=== PATIENT | female | born 1955 | race Caucasian/White ===

== ENCOUNTER → 2017-06-19 | Outpatient (CLI) | payer OTHER ==
--- NOTE | 2017-06-19 16:26 | WOMENS IMAGING REPORT ---
EXAM DESCRIPTION: 3D SCREENING MAMMO BILAT COMPLETED DATE/TIME: 06/19/2017 2:59 pm REASON FOR STUDY: SCREENING MAMMO Z12.31 ENCNTR SCREEN MAMMOGRAM FOR MALIGNANT NEOPLASM OF ДМИТРИЙ COMPARISON: 05/22/2016 and 05/16/2015. TECHNIQUE: Standard craniocaudal and mediolateral oblique views of each breast recorded using digita l acquisition and breast tomosynthesis. LIMITATIONS: None. FINDINGS: Findings present which are benign by mammographic criteria. No suspicious masses, calcifi cations or architectural distortion. Pertinent benign findings: Stable calcifications. Read with the assistance of CAD. .[facility] - R2 Cenova Version 1.3 .[facility] - R2 Cenova Version 1.3 .[facility] - R2 Cenova Version 2.4 .[facility] - R2 Cenova Version 2.4 .[facility] - R2 Scrape Gatherer Version 9.2 Benign mammographic findings may include one or more of the following: Smooth masses, popcorn/rim/co arse calcifications, asymmetries, post-procedure changes, and lesions with long-standing stability. IMPRESSION: BENIGN MAMMOGRAPHIC FINDINGS. BIRADS 2 BREAST DENSITY: c. The breasts are heterogeneously dense, which may obscure small masses. BIRAD: 2 BENIGN FINDING(S) RECOMMENDATION: RECOMMENDATION: ROUTINE SCREENING COMMENT: The patient has been notified of the results by letter per SA requirements. Additional no tification policies are in place for contacting patient with suspicious or incomplete findings. Quality ID #[id number]: The [employer] recommends an annual screening mammogram for women aged 40 years or over. This facility utilizes a reminder system to ensure that all patients receive reminder letters, and/or direct phone calls for appointments. This includes reminders for routine scr eening mammograms, diagnostic mammograms, or other Breast Imaging Interventions when appropriate. Th is patient will be placed in the appropriate reminder system. The [employer] (ACR) has developed recommendations for screening MRI of the breast s in certain patient populations, to be used in conjunction with mammography. Breast MRI surveillanc e may be appropriate for women with more than 20% lifetime risk of developing breast cancer as deter mined by genetic testing, significant family history of the disease, or history of mantle radiation f or Hodgkins Disease. ACR Practice Guidelines 2008. DBT Technology DBT is a type of tomographic mammography. With conventional mammography, overlapping breast tissue ma y make lesions difficult to detect, even with good compression. DBT uses an x-ray tube that rotates a round the breast, taking images at different angles. These images are then combined to create thin sl ices of the breast that the radiologist can view as a 3D reconstruction. The [employer] unit can perform full-field digital mammograms (2D imaging); or DBT (3D imaging); or both, in a combination mode that quickly performs both the mammogram and the tomosynthesis scan while the breast is still compressed. PQRS 6045F: Fluoroscopic imaging is not utilized for breast tomosynthesis. TECHNICAL DOCUMENTATION: FINDING NUMBER: (1) ASSESSMENT: (1) JOB ID: [id number] [employer]- All Rights Reserved
== END ==
LOC: WI 14:23
PROVIDERS: ATTEND Nurse Practitioner
DX: Z12.31 Encounter for screening mammogram for malignant neoplasm of breast (principal)
CPT/HCPCS: 77063; G0202; 77067

== ENCOUNTER 2018-05-18 08:45 | Inpatient (IN) | payer OTHER ==
[2018-05-18] MEDS ORDERED: NORMAL SALINE 1000 ML 1,000 ML IV ONE (09:10)
[2018-05-18] MEDS ORDERED: ONDANSETRON HCL INJ/PF 4 MG/2 ML SDV IV ONE (09:11)
[2018-05-18] MEDS ORDERED: DICYCLOMINE HCL 20 MG TABLET PO ONE (09:15)
--- NOTE | 2018-05-18 09:24 | ER Document Report ---
ED General - General Chief Complaint: Abdominal Pain Stated Complaint: ABDOMINAL PAIN Time Seen by Provider: 05/18/18 09:08 TRAVEL OUTSIDE OF THE [place] IN LAST 30 DAYS: No - HPI Notes: Patient is a 62-year-old female that presents to the emergency department for chief complaint of abdominal pain nausea and vomiting. She reports 3 days of multiple episodes of nausea and vomiting daily. She states she is unable to keep any food down. Eating does make the nausea worse. She reports diffuse crampy abdominal pain that is worse in the epigastric region. The pain is intermittent. It is slightly worse with eating and vomiting. She denies any relieving factors. She does report sweats and chills but denies taking her temperature having a fever. She denies any diarrhea, dysuria, cough, shortness of breath and chest pain. Past Medical History: Diabetes, hypertension, hyperlipidemia, asthma Past Surgical History: hysterectomy, appendectomy Social History: Daily tobacco. Denies drugs and alcohol Family History: Reviewed and noncontributory for presenting illness Allergies: Reviewed, see documented allergy list. REVIEW OF SYSTEMS: CONSTITUTIONAL : No fever chills diaphoresis No recent illness EENT: No vision changes No congestion No sore throat CARDIOVASCULAR: No chest pain No palpitations RESPIRATORY: No shortness of breath No cough No difficulty breathing GASTROINTESTINAL: abdominal pain nausea vomiting No diarrhea GENITOURINARY: No dysuria No hematuria No difficulty urinating MUSCULOSKELETAL: No back pain No leg pain No arm pain SKIN: No rashes No lesions LYMPHATIC: No swollen, enlarged glands. NEUROLOGICAL: No lightheadedness No headache No weakness No paresthesias PSYCHIATRIC: No anxiety No depression PHYSICAL EXAMINATION: Vital signs reviewed, nursing noted reviewed. GENERAL: Well-appearing, well-nourished and in no acute distress. HEAD: Atraumatic, normocephalic. EYES: Eyes appear normal, extraocular movements intact, sclera anicteric, conjunctiva are normal. ENT: nares patent, oropharynx clear without exudates. Moist mucous membranes. NECK: Normal range of motion, supple without lymphadenopathy LUNGS: Breath sounds clear to auscultation bilaterally and equal. No wheezes rales or rhonchi. HEART: Regular rate and rhythm without murmurs ABDOMEN: Soft, mild diffuse abdominal tenderness worse in the epigastric region , normoactive bowel sounds. No rebound, guarding, or rigidity. No masses appreciated. EXTREMITIES: Nontender, good range of motion, no pitting or edema. NEUROLOGICAL: No focal neurological deficits. Moves all extremities spontaneously Motor and sensory grossly intact on exam. PSYCH: Normal mood, normal affect. SKIN: Warm, Dry, normal turgor, no rashes or lesions noted on exposed skin - Related Data Allergies/Adverse Reactions: codeine Allergy (Verified 05/18/18 08:50) egg Allergy (Verified 05/18/18 08:50) Past Medical History - Social History Smoking Status: Current Every Day Smoker Family History: Reviewed & Not Pertinent Review of Systems - Review of Systems Notes: Dictated Physical Exam - Vital signs Vitals: Temp Resp BP 97.7 F 18 120/59 L 05/18/18 08:54 05/18/18 08:54 05/18/18 08:54 - Notes Notes: Dictated Course - Re-evaluation Re-evalutation: 05/18/18 09:24 Vitals reviewed. Nursing notes reviewed. Patient given IV hydration, Zofran and Bentyl for symptomatic treatment. 05/18/18 11:05 Patient reevaluated. She is having improvement of her pain and nausea after medication. Patient's lab work shows elevated BUN with normal creatinine. She has no electrolyte derangements. She does have a mild leukocytosis. She is still unable to give a urine sample and I suspect she is still dehydrated. She was given a second liter normal saline IV bolus. CT scan of the abdomen shows a small bowel obstruction. Patient made n.p.o. and NG tube was placed. She will be admitted to the hospital for further management of her small bowel obstruction. Patient in agreement with this plan. Laboratory 05/18/18 05/18/18 09:16 09:16 WBC 14.1 H RBC 5.04 Hgb 15.6 H Hct 46.0 MCV 91 MCH 30.9 MCHC 33.9 RDW 14.1 H Plt Count 216 Seg Neutrophils % 77.3 Lymphocytes % 12.5 L Monocytes % 9.7 Eosinophils % 0.2 Basophils % 0.3 Absolute Neutrophils 10.9 H Absolute Lymphocytes 1.8 Absolute Monocytes 1.4 Absolute Eosinophils 0.0 Absolute Basophils 0.0 Sodium 142.0 Potassium 4.3 Chloride 99 Carbon Dioxide 24 Anion Gap 19 BUN 23 H Creatinine 0.78 Est GFR ( Amer) > 60 Est GFR (Non-Af Amer) > 60 Glucose 145 H Calcium 10.4 H Total Bilirubin 1.1 Direct Bilirubin 0.4 Neonat Total Bilirubin Not Reportable Neonat Direct Bilirubin Not Reportable Neonat Indirect Bili Not Reportable AST 17 ALT 18 Alkaline Phosphatase 51 Total Protein 7.6 Albumin 4.8 Lipase 45.2 05/18/18 12:[address] Soriano who accepted admission - Vital Signs Vital signs: Temp Pulse Resp BP Pulse Ox 97.7 F 18 120/59 L 05/18/18 08:54 05/18/18 08:54 05/18/18 08:54 - Laboratory Result Diagrams: 05/18/18 09:16 05/18/18 09:16 Laboratory results interpreted by me: 05/18/18 05/18/18 09:16 09:16 WBC 14.1 H Hgb 15.6 H RDW 14.1 H Lymphocytes % 12.5 L Absolute Neutrophils 10.9 H BUN 23 H Glucose 145 H Calcium 10.4 H Discharge - Discharge Clinical Impression: Small bowel obstruction Condition: Stable Disposition: ADMITTED INPATIENT Admitting Provider: Surgicalist Unit Admitted: Surgical Floor Referrals: TRAV RIVERA NP [Primary Care Provider] - Follow up as needed
[2018-05-18 09:25] LABS: ABSOLUTE LYMPHOCYTES (AUTO) 1.8 10^3/uL (0.5-4.7); ABSOLUTE MONOCYTES (AUTO) 1.4 10^3/uL (0.1-1.4); ABSOLUTE NEUT (AUTO) 10.9 10^3/uL (1.7-8.2); BASOPHILS % (AUTO) 0.3 % (0-2); EOSINOPHILS % (AUTO) 0.2 % (0-6); HEMOGLOBIN 15.6 g/dL (12.0-15.5); LYMPHOCYTES % (AUTO) 12.5 % (13-45); MEAN CORPUSCULAR HEMOGLOBIN 30.9 pg (27.0-33.4); MEAN CORPUSCULAR HGB CONC 33.9 g/dL (32.0-36.0); MEAN CORPUSCULAR VOLUME 91 fl (80-97); MONOCYTES % (AUTO) 9.7 % (3-13); PLATELET COUNT 216 10^3/uL (150-450); RED BLOOD COUNT 5.04 10^6/uL (3.72-5.28); RED CELL DISTRIBUTION WIDTH 14.1 % (11.5-14.0); SEGMENTED NEUTROPHILS % (AUTO) 77.3 % (42-78); TOTAL CELLS COUNTED % (AUTO) 100 %; WHITE BLOOD COUNT 14.1 10^3/uL (4.0-10.5)
[2018-05-18 09:52] LABS: ALANINE AMINOTRANSFERASE 18 U/L (9-52); ALBUMIN 4.8 g/dL (3.5-5.0); ALKALINE PHOSPHATASE 51 U/L (38-126); ANION GAP 19 (5-19); ASPARTATE AMINO TRANSFERASE 17 U/L (14-36); BILIRUBIN,DIRECT 0.4 mg/dL (0.0-0.4); BILIRUBIN,TOTAL 1.1 mg/dL (0.2-1.3); BLOOD UREA NITROGEN 23 mg/dL (7-20); CALCIUM 10.4 mg/dL (8.4-10.2); CARBON DIOXIDE 24 mmol/L (22-30); CHLORIDE 99 mmol/L (98-107); GLUCOSE 145 mg/dL (75-110); LIPASE 45.2 U/L (23-300); POTASSIUM 4.3 mmol/L (3.6-5.0); TOTAL PROTEIN 7.6 g/dL (6.3-8.2)
[2018-05-18] MEDS: NORMAL SALINE 1000 ML 1,000 ML IV PRN ×2 (10:40→14:26)
--- NOTE | 2018-05-18 11:11 | RADIOLOGY REPORT (SQ) ---
EXAM DESCRIPTION: CT ABD/PELVIS WITH IV ONLY COMPLETED DATE/TIME: 05/18/2018 10:31 am REASON FOR STUDY: epigastric abdominal pain COMPARISON: None. TECHNIQUE: CT scan of the abdomen and pelvis performed using helical scanning technique with dynamic intravenous contrast injection. No oral contrast. Images reviewed with lung, soft tissue, and bone windows. Reconstructed coronal and sagittal MPR images reviewed. Delayed images for evaluation of the urinary system also acquired. All images stored on PACS. All CT scanners at this facility use dose modulation, iterative reconstruction, and/or weight based d osing when appropriate to reduce radiation dose to as low as reasonably achievable (ALARA). [facility]: Dose Right [facility]: CareDose [facility]: Dose Right [facility]: Teradose 4D [facility]: [employer] CONTRAST TYPE AND DOSE: contrast/concentration: Isovue 350.00 mg/ml; Total Contrast Delivered: 74.0 ml; Total Saline Delivered: 66.0 ml 74 mL IV of Omnipaque 350- low osmolar. RENAL FUNCTION: BUN 23 creatinine 0.78 RADIATION DOSE: CT Rad equipment meets quality standard of care and radiation dose reduction techniq ues were employed. CTDIvol: 6.5 - 9.0 mGy. DLP: 832 mGy-cm.. LIMITATIONS: None. FINDINGS: LOWER CHEST: No significant findings. No nodules or infiltrates. LIVER: Normal size. No masses. No dilated ducts. SPLEEN: Normal size. No focal lesions. PANCREAS: No masses. No significant calcifications. No adjacent inflammation or peripancreatic fluid collections. Pancreatic duct not dilated. GALLBLADDER: Gallstones. No inflammatory changes to suggest cholecystitis. ADRENAL GLANDS: Indeterminate 2.0 x 3.3 cm right adrenal nodule. Left adrenal gland is normal. RIGHT KIDNEY AND URETER: No solid masses. No significant calcifications. No hydronephrosis or hyd roureter. LEFT KIDNEY AND URETER: No solid masses. No significant calcifications. No hydronephrosis or hydr oureter. AORTA AND VESSELS: No aneurysm. Mild scattered calcified noncalcified plaque of the visualized aorto iliac system. IVC is flattened. No dissection. Renal arteries, SMA, celiac without stenosis. RETROPERITONEUM: No retroperitoneal adenopathy, hemorrhage or masses. BOWEL AND PERITONEAL CAVITY: Multiple fluid-filled loops of mildly dilated loops of proximal small sydni wel. Mid to distal small bowel is collapsed. Possible transition point within the right lower quadr ant of the abdomen (series 3, image 64; series 601, image 35). Few scattered diverticula colon. No inflammatory changes to suggest diverticulitis. Colon is not dilated. Small amount of free fluid wi thin the abdomen and pelvis. No free air. APPENDIX: Surgically absent. PELVIS: Uterus is surgically absent. Urinary bladder is minimally distended. Small amount of free f luid. ABDOMINAL WALL: No masses. No hernias. BONES: No significant or acute findings. OTHER: No other significant finding. IMPRESSION: 1. Dilated proximal small bowel consistent with a small-bowel obstruction. Possible transition point within the for right lower quadrant the abdomen. Small amount of free fluid within the abdomen/pelv is. 2. Cholelithiasis. 3. Indeterminate right adrenal nodule. Nonemergent adrenal protocol CT or MRI is recommended for fur ther evaluation. 4. Diverticulosis without diverticulitis. COMMENT: This report was called to KARMA FARRAR DO at11:02 on 05/18/2018. TECHNICAL DOCUMENTATION: JOB ID: [id number] Quality ID # [id number]: Final reports with documentation of one or more dose reduction techniques (e.g., Au tomated exposure control, adjustment of the mA and/or kV according to patient size, use of iterative reconstruction technique) 2010 [employer]- All Rights Reserved Reading location - IP/workstation name: [email or web address]
[2018-05-18] MEDS ORDERED: PHARMACY COMMUNICATION ORDER MC NR (11:15)
[2018-05-18] MEDS ORDERED: LIDOCAINE 2% URO-JET 5 ML KIT MM ONE (11:47)
--- NOTE | 2018-05-18 14:24 | RADIOLOGY REPORT (SQ) ---
EXAM DESCRIPTION: KUB/ABDOMEN (SINGLE VIEW) COMPLETED DATE/TIME: 05/18/2018 12:48 pm REASON FOR STUDY: Check Placement of NG Tube COMPARISON: CT abdomen and pelvis 05/18/2018. NUMBER OF VIEWS: One view. TECHNIQUE: Semi upright radiographic image of the abdomen acquired. LIMITATIONS: None. FINDINGS: BOWEL GAS PATTERN: Gaseous distension of small bowel loops, consistent with known obstruct ion. CALCIFICATIONS: No suspicious calcifications. SOFT TISSUES: No gross mass or suggestion of organomegaly. HARDWARE: Enteric tube with the tip at the left upper quadrant, in the expected location of the gastr ic body. BONES: No acute findings. IMPRESSION: 1. Enteric tube with the tip at the left upper quadrant, in the expected location of th e gastric body. 2. Gaseous distension of small bowel loops, consistent with known small bowel obstruction. TECHNICAL DOCUMENTATION: JOB ID: [id number] 2010 [employer]- All Rights Reserved Reading location - IP/workstation name: [email or web address]
[2018-05-18] MEDS: ONDANSETRON HCL INJ/PF 4 MG/2 ML SDV IV PRN ×2 (14:28→22:10)
[2018-05-18] MEDS: DEXTROSE 5%-LACTATED RINGERS 1,000 ML IV PRN (16:07)
[2018-05-18] MEDS ORDERED: DEXTROSE 50%-WATER SYRINGE 12.5 GM/25 ML DOSE IV PRN (16:09)
[2018-05-18] MEDS ORDERED: DEXTROSE 40% GEL 15 GM TUBE PO PRN (16:09)
[2018-05-18] MEDS ORDERED: INSULIN LISPRO 100 UNIT/ML 3 ML VIAL SUBCUT PRN (16:09)
[2018-05-18] MEDS ORDERED: DEXTROSE 50%-WATER SYRINGE 25 GM/50 ML DOSE IV PRN (16:09)
[2018-05-18] MEDS ORDERED: DEXTROSE 40% GEL 15 GM TUBE X 2 PO PRN (16:09)
[2018-05-18] MEDS ORDERED: GLUCAGON,HUMAN RECOMB 1 MG INJ IM PRN (16:09)
[2018-05-18 16:47] LABS: APPEARANCE,URINE CLEAR; BILIRUBIN,URINE NEGATIVE (NEGATIVE); COLOR,URINE YELLOW; GLUCOSE, URINE NEGATIVE (NEGATIVE); KETONES,URINE 20 mg/dL (NEGATIVE); LEUKOCYTE ESTERASE,URINE NEGATIVE (NEGATIVE); NITRITE,URINE NEGATIVE (NEGATIVE); PROTEIN,URINE NEGATIVE (NEGATIVE); URINE SPECIFIC GRAVITY > 1.060
[2018-05-18] MEDS ORDERED: PROMETHAZINE HCL INJ 25 MG/1 ML VIAL IV PRN (17:40)
[2018-05-18] MEDS: MORPHINE SULFATE 10 MG/ML INJ IV PRN ×2 (18:00→22:10)
[2018-05-18] MEDS ORDERED: PHENOL/SODIUM PHENOLATE 100 SPRAY/177 ML BOTTLE PO PRN (19:15)
--- NOTE | 2018-05-18 19:17 | PDOC H&P ---
History of Present Illness Admission Date/PCP: 05/18/18 12:27 TRAV RIVERA NP Patient complains of: Nausea, vomiting History of Present Illness: MINDI SPENCER is a 62 year old female with a 2-day history of increasing abdominal pain, nausea, and vomiting. The patient reports that she cannot keep anything down, even water. She has vomited multiple times. She felt like she was becoming dehydrated, and presented to the emergency department for evaluation. Her pain is crampy and mild. She does report abdominal distention , persistent nausea, and multiple episodes of vomiting. She denies fevers, chills, chest pain, shortness of breath, dizziness, orthostasis, malaise, fatigue, headache. She has never had a small bowel obstruction in the past. She has had multiple abdominal surgeries. Nothing makes it better, eating or drinking make it worse. Past Medical History Pulmonary Medical History: Reports: Asthma Endocrine Medical History: Reports: Diabetes Mellitus Type 2 - "pre-diabetic" Renal/ Medical History: Reports: Other - Endometriosis Past Surgical History Past Surgical History: Reports: Hysterectomy, Other - Surgery for endometriosis Social History Smoking Status: Current Some Day Smoker Cigarettes Packs Per Day: 1 Number of Years Smokin Last Time Smoked: SATURDAY Frequency of Alcohol Use: Rare Hx Recreational Drug Use: No Hx Prescription Drug Abuse: No - Advance Directive Resuscitation Status: Full Code Family History Family History: Reviewed & Not Pertinent Parental Family History Reviewed: Yes Children Family History Reviewed: Yes Sibling(s) Family History Reviewed.: Yes Medication/Allergy Home Medications: Cholecalciferol (Vitamin D3) [Vitamin D] 2,000 unit PO DAILY 05/18/18 Cyanocobalamin (Vitamin B-12) [B-12] 1,000 mcg PO DAILY 05/18/18 Esomeprazole Magnesium [Nexium 24Hr] 20 mg PO DAILY 05/18/18 Losartan Potassium [Cozaar 100 mg Tablet] 100 mg PO DAILY 05/18/18 Metformin HCl [Glucophage] 1,000 mg PO BID 05/18/18 Rosuvastatin Calcium [Crestor 20 mg Tablet] 20 mg PO DAILY 05/18/18 Allergies/Adverse Reactions: codeine Allergy (Verified 05/18/18 08:50) egg Allergy (Verified 05/18/18 08:50) Review of Systems Constitutional: PRESENT: anorexia. ABSENT: chills, fatigue, fever(s), headache( s), night sweats Eyes: ABSENT: visual disturbances Ears: ABSENT: hearing changes Nose, Mouth, and Throat: ABSENT: sore throat Cardiovascular: ABSENT: chest pain Respiratory: ABSENT: cough, dyspnea Gastrointestinal: PRESENT: abdominal pain, bloating, nausea, vomiting Genitourinary: ABSENT: dysuria Musculoskeletal: ABSENT: back pain Integumentary: ABSENT: pruritus, rash Neurological: ABSENT: abnormal movements, abnormal speech, confusion, convulsions, dizziness Psychiatric: ABSENT: anxiety, depression Endocrine: ABSENT: cold intolerance, heat intolerance Hematologic/Lymphatic: ABSENT: easy bleeding, easy bruising Physical Exam Vital Signs: Temp Pulse Resp BP Pulse Ox 97.8 F 81 17 140/85 H 100 05/18/18 15:18 05/18/18 15:18 05/18/18 15:18 05/18/18 15:18 05/18/18 15:18 General appearance: PRESENT: no acute distress Head exam: PRESENT: atraumatic, normocephalic Eye exam: PRESENT: EOMI, PERRLA. ABSENT: scleral icterus Mouth exam: PRESENT: moist, neck supple Neck exam: ABSENT: meningismus, tenderness, thyromegaly, tracheal deviation Respiratory exam: PRESENT: clear to auscultation phylicia, unlabored. ABSENT: chest wall tenderness, tachypnea Cardiovascular exam: PRESENT: RRR Pulses: PRESENT: normal radial pulses Vascular exam: PRESENT: normal capillary refill. ABSENT: pallor GI/Abdominal exam: PRESENT: distended, soft, tenderness - Mild. ABSENT: rebound , rigid Rectal exam: PRESENT: deferred Extremities exam: ABSENT: clubbing Musculoskeletal exam: ABSENT: deformity Neurological exam: PRESENT: alert, awake, oriented to person, oriented to place , oriented to time, oriented to situation, CN II-XII grossly intact. ABSENT: motor sensory deficit Psychiatric exam: ABSENT: agitated, anxious, depressed Focused psych exam: ABSENT: delusional Skin exam: ABSENT: cyanosis, erythema, jaundice Results Laboratory Results: 05/18/18 16:32 Urine Color YELLOW Urine Appearance CLEAR Urine pH 6.0 Ur Specific [place] > 1.060 Urine Protein NEGATIVE Urine Glucose (UA) NEGATIVE Urine Ketones 20 H Urine Blood NEGATIVE Urine Nitrite NEGATIVE Ur Leukocyte Esterase NEGATIVE Urine WBC (Auto) 3 Urine RBC (Auto) 2 Impressions: Abdomen/Pelvis CT 05/18/18 09:25 IMPRESSION: 1. Dilated proximal small bowel consistent with a small-bowel obstruction. Possible transition point within the for right lower quadrant the abdomen. Small amount of free fluid within the abdomen/pelvis. 2. Cholelithiasis. 3. Indeterminate right adrenal nodule. Nonemergent adrenal protocol CT or MRI is recommended for further evaluation. 4. Diverticulosis without diverticulitis. KUB X-Ray 05/18/18 11:05 IMPRESSION: 1. Enteric tube with the tip at the left upper quadrant, in the expected location of the gastric body. 2. Gaseous distension of small bowel loops, consistent with known small bowel obstruction. Status: Image reviewed by me Assessment & Plan - Diagnosis (1) Small bowel obstruction Is this a current diagnosis for this admission?: Yes - Plan Summary Plan Summary: This is a 62-year-old female with a small bowel obstruction, seen on CT scan. The patient has never had symptoms like this before. The patient has had several pelvic surgeries in the past. I believe her symptoms to be related to adhesive disease. Currently, the patient has an NG tube for decompression. The patient does not have signs of an acute abdomen. I recommended NG tube decompression and watchful waiting. If the patient does not have resolution of symptoms in 48 hours, she may require surgical intervention. The patient expressed good understanding. She is in agreement with the treatment plan.
[2018-05-19] MEDS: DEXTROSE 5%-LACTATED RINGERS 1,000 ML IV PRN ×5 (01:53→23:09)
[2018-05-19 04:53] LABS: ABSOLUTE EOSINOPHILS # (AUTO) 0.1 10^3/uL (0.0-0.6); ABSOLUTE LYMPHOCYTES (AUTO) 2.1 10^3/uL (0.5-4.7); ABSOLUTE MONOCYTES (AUTO) 1.4 10^3/uL (0.1-1.4); ABSOLUTE NEUT (AUTO) 8.9 10^3/uL (1.7-8.2); BASOPHILS % (AUTO) 0.3 % (0-2); HEMATOCRIT 42.5 % (36.0-47.0); HEMOGLOBIN 14.3 g/dL (12.0-15.5); MEAN CORPUSCULAR HEMOGLOBIN 30.8 pg (27.0-33.4); MEAN CORPUSCULAR HGB CONC 33.7 g/dL (32.0-36.0); MEAN CORPUSCULAR VOLUME 91 fl (80-97); PLATELET COUNT 177 10^3/uL (150-450); RED BLOOD COUNT 4.65 10^6/uL (3.72-5.28); SEGMENTED NEUTROPHILS % (AUTO) 70.7 % (42-78); TOTAL CELLS COUNTED % (AUTO) 100 %; WHITE BLOOD COUNT 12.5 10^3/uL (4.0-10.5)
[2018-05-19 05:14] LABS: ALANINE AMINOTRANSFERASE 13 U/L (9-52); ALBUMIN 3.6 g/dL (3.5-5.0); ALKALINE PHOSPHATASE 35 U/L (38-126); ANION GAP 9 (5-19); ASPARTATE AMINO TRANSFERASE 14 U/L (14-36); BILIRUBIN,DIRECT 0.2 mg/dL (0.0-0.4); BILIRUBIN,TOTAL 0.9 mg/dL (0.2-1.3); BLOOD UREA NITROGEN 16 mg/dL (7-20); CALCIUM 9.3 mg/dL (8.4-10.2); CARBON DIOXIDE 32 mmol/L (22-30); CHLORIDE 103 mmol/L (98-107); GLUCOSE 142 mg/dL (75-110); SODIUM 144.2 mmol/L (137-145)
[2018-05-19] MEDS: MORPHINE SULFATE 10 MG/ML INJ IV PRN ×2 (06:20→15:36)
[2018-05-19] MEDS: ONDANSETRON HCL INJ/PF 4 MG/2 ML SDV IV PRN ×2 (06:21→15:35)
[2018-05-19] MEDS: PANTOPRAZOLE SODIUM 40 MG VIAL IV SCH (11:13)
[2018-05-19] MEDS: ENOXAPARIN SODIUM INJ 40 MG/0.4 ML DISP.SYRIN SUBCUT SCH (11:13)
--- NOTE | 2018-05-19 11:44 | RADIOLOGY REPORT (SQ) ---
EXAM DESCRIPTION: KUB/ABDOMEN (SINGLE VIEW) COMPLETED DATE/TIME: 05/19/2018 8:00 am REASON FOR STUDY: SBO COMPARISON: 05/18/2018. NUMBER OF VIEWS: One view. TECHNIQUE: Supine radiographic image of the abdomen acquired. LIMITATIONS: None. FINDINGS: BOWEL GAS PATTERN: Small bowel dilation unchanged. CALCIFICATIONS: No suspicious calcifications. SOFT TISSUES: No gross mass or suggestion of organomegaly. HARDWARE: Nasogastric tube with the tip in the stomach. BONES: No acute fracture. No worrisome bone lesions. OTHER: No other significant finding. IMPRESSION: NO CHANGE. CONTINUED SMALL BOWEL DILATION. TECHNICAL DOCUMENTATION: JOB ID: [id number] [employer]- All Rights Reserved Reading location - IP/workstation name: [email or web address]
--- NOTE | 2018-05-19 17:36 | PDOC PROGRESS REPORT ---
Subjective Progress Note for:: 05/19/18 Subjective:: Patient states she felt some rumbling in her intestines great bowel movement. She still draining from her small caliber nasogastric tube. She denies flatus or stool. Reason For Visit: SMALL BOWEL OBSTRUCTION Physical Exam Vital Signs: Temp Pulse Resp BP Pulse Ox 98.3 F 77 16 135/72 H 97 05/19/18 15:30 05/19/18 15:30 05/19/18 15:30 05/19/18 15:30 05/19/18 15:30 Intake & Output 05/18/18 05/19/18 05/20/18 06:59 06:59 06:59 Intake Total 1977 950 Output Total 750 200 Balance 1227 750 Weight 73.7 kg General appearance: PRESENT: no acute distress GI/Abdominal exam: PRESENT: other - Abdomen soft essentially no tenderness; however patient just received narcotics Results Laboratory Results: 05/19/18 04:05 05/19/18 04:05 05/19/18 05/19/18 04:05 04:05 WBC 12.5 H RBC 4.65 Hgb 14.3 Hct 42.5 MCV 91 MCH 30.8 MCHC 33.7 RDW 14.0 Plt Count 177 Seg Neutrophils % 70.7 Lymphocytes % 17.0 Monocytes % 11.0 Eosinophils % 1.0 Basophils % 0.3 Absolute Neutrophils 8.9 H Absolute Lymphocytes 2.1 Absolute Monocytes 1.4 Absolute Eosinophils 0.1 Absolute Basophils 0.0 Sodium 144.2 Potassium 4.0 Chloride 103 Carbon Dioxide 32 H Anion Gap 9 BUN 16 Creatinine 0.70 Est GFR ( Amer) > 60 Est GFR (Non-Af Amer) > 60 Glucose 142 H Calcium 9.3 Total Bilirubin 0.9 AST 14 ALT 13 Alkaline Phosphatase 35 L Total Protein 6.0 L Albumin 3.6 Impressions: Abdomen/Pelvis CT 05/18/18 09:25 IMPRESSION: 1. Dilated proximal small bowel consistent with a small-bowel obstruction. Possible transition point within the for right lower quadrant the abdomen. Small amount of free fluid within the abdomen/pelvis. 2. Cholelithiasis. 3. Indeterminate right adrenal nodule. Nonemergent adrenal protocol CT or MRI is recommended for further evaluation. 4. Diverticulosis without diverticulitis. KUB X-Ray 05/19/18 06:00 IMPRESSION: NO CHANGE. CONTINUED SMALL BOWEL DILATION. Assessment & Plan - Diagnosis (1) Small bowel obstruction Is this a current diagnosis for this admission?: Yes Plan: Depression: Likely partial; however patient has not opened up yet. Abdominal films today show persisting dilated loops of small bowel; no active flatus Recommendations: 1. We will discontinue narcotics to reduce negative effect on bowel recovery, and risk of masking any disease progression 2. We will consult hospitalist for management of medical issues including anti- asthma medication. 3. She may have sips of ice chips. 4. If no better tomorrow, will obtain a upper GI with small bowel follow- through.
--- NOTE | 2018-05-19 18:42 | PDOC CONSULTATION ---
History of Present Illness Admission Date/PCP: 05/18/18 12:27 TRAV RIVERA NP History of Present Illness: MINDI SPENCER is a 62 year old female with a past medical history of well- controlled hypertension, prediabetes, hyperlipidemia, and asthma who was admitted for partial SBO under surgery service. Hospitalist service was consulted for comanagement of patient's home medications and medical comorbidities. Patient's medical issues have been well controlled. She says she is not a diabetic and and her highest A1c in the past is 6.4. She says that even with her prediabetes, her PCP has decided to start her on metformin. She says her last hemoglobin A1c was 5.4 months ago. She says her hypertension is also well controlled at home. She says she has asthma with her last exacerbation last month. She uses Breo for this. She also takes Lunesta as needed for insomnia at night. Past Medical History Pulmonary Medical History: Reports: Asthma Endocrine Medical History: Reports: Diabetes Mellitus Type 2 - "pre-diabetic" Renal/ Medical History: Reports: Other - Endometriosis Past Surgical History Past Surgical History: Reports: Hysterectomy, Other - Surgery for endometriosis Social History Smoking Status: Current Some Day Smoker Cigarettes Packs Per Day: 1 Number of Years Smokin Last Time Smoked: SATURDAY Frequency of Alcohol Use: Rare Hx Recreational Drug Use: No Hx Prescription Drug Abuse: No - Advance Directive Resuscitation Status: Full Code Family History Family History: Reviewed & Not Pertinent Parental Family History Reviewed: Yes - No premature CAD Children Family History Reviewed: No Sibling(s) Family History Reviewed.: No Medication/Allergy Home Medications: Cholecalciferol (Vitamin D3) [Vitamin D] 2,000 unit PO DAILY 05/18/18 Cyanocobalamin (Vitamin B-12) [B-12] 1,000 mcg PO DAILY 05/18/18 Esomeprazole Magnesium [Nexium 24Hr] 20 mg PO DAILY 05/18/18 Eszopiclone [Lunesta] 3 mg PO QHS PRN 05/18/18 Losartan Potassium [Cozaar 100 mg Tablet] 100 mg PO DAILY 05/18/18 Metformin HCl [Glucophage] 1,000 mg PO BID 05/18/18 Rosuvastatin Calcium [Crestor 20 mg Tablet] 20 mg PO DAILY 05/18/18 Allergies/Adverse Reactions: codeine Allergy (Verified 05/18/18 08:50) egg Allergy (Verified 05/18/18 08:50) Review of Systems All systems: reviewed and no additional remarkable complaints except as stated - As mentioned in HPI Physical Exam Vital Signs: Temp Pulse Resp BP Pulse Ox 98.3 F 77 16 135/72 H 97 05/19/18 15:30 05/19/18 15:30 05/19/18 15:30 05/19/18 15:30 05/19/18 15:30 Intake & Output 05/18/18 05/19/18 05/20/18 06:59 06:59 06:59 Intake Total 1977 950 Output Total 750 200 Balance 1227 750 Weight 162 lb 7.691 oz General appearance: PRESENT: no acute distress, well-developed, well-nourished, other - NGT on place Head exam: PRESENT: atraumatic, normocephalic Eye exam: PRESENT: conjunctiva pink, EOMI, PERRLA. ABSENT: scleral icterus Ear exam: PRESENT: normal external ear exam Mouth exam: PRESENT: moist, tongue midline Neck exam: ABSENT: carotid bruit, JVD, lymphadenopathy, thyromegaly Respiratory exam: PRESENT: clear to auscultation phylicia. ABSENT: rales, rhonchi, wheezes Cardiovascular exam: PRESENT: RRR. ABSENT: diastolic murmur, rubs, systolic murmur Pulses: PRESENT: normal dorsalis pedis pul GI/Abdominal exam: PRESENT: distended - slightly distended, normal bowel sounds , soft. ABSENT: guarding, mass, organolmegaly, rebound, tenderness Rectal exam: PRESENT: deferred Neurological exam: PRESENT: alert, awake, oriented to person, oriented to place , oriented to time, oriented to situation, CN II-XII grossly intact. ABSENT: motor sensory deficit Results Laboratory Results: 05/19/18 04:05 05/19/18 04:05 05/19/18 05/19/18 04:05 04:05 WBC 12.5 H RBC 4.65 Hgb 14.3 Hct 42.5 MCV 91 MCH 30.8 MCHC 33.7 RDW 14.0 Plt Count 177 Seg Neutrophils % 70.7 Lymphocytes % 17.0 Monocytes % 11.0 Eosinophils % 1.0 Basophils % 0.3 Absolute Neutrophils 8.9 H Absolute Lymphocytes 2.1 Absolute Monocytes 1.4 Absolute Eosinophils 0.1 Absolute Basophils 0.0 Sodium 144.2 Potassium 4.0 Chloride 103 Carbon Dioxide 32 H Anion Gap 9 BUN 16 Creatinine 0.70 Est GFR ( Amer) > 60 Est GFR (Non-Af Amer) > 60 Glucose 142 H Calcium 9.3 Total Bilirubin 0.9 AST 14 ALT 13 Alkaline Phosphatase 35 L Total Protein 6.0 L Albumin 3.6 Impressions: Abdomen/Pelvis CT 05/18/18 09:25 IMPRESSION: 1. Dilated proximal small bowel consistent with a small-bowel obstruction. Possible transition point within the for right lower quadrant the abdomen. Small amount of free fluid within the abdomen/pelvis. 2. Cholelithiasis. 3. Indeterminate right adrenal nodule. Nonemergent adrenal protocol CT or MRI is recommended for further evaluation. 4. Diverticulosis without diverticulitis. KUB X-Ray 05/19/18 06:00 IMPRESSION: NO CHANGE. CONTINUED SMALL BOWEL DILATION. Assessment & Plan - Diagnosis (1) Small bowel obstruction Is this a current diagnosis for this admission?: Yes Plan: Improving. NG tube in place. Primary service managing. (2) Pre-diabetes Is this a current diagnosis for this admission?: Yes Plan: Noted patient's blood sugars. As mentioned, she says her last A1c was 5.45 months ago. She has a standing order for a repeat A1c next month with her PCP. Continue to monitor blood sugars for now. (3) Hypertension Is this a current diagnosis for this admission?: Yes Plan: Patient takes losartan 100 mg daily at home. Her blood pressures are well controlled here despite being off losartan because of her n.p.o. status. This may be resumed later when surgery advances patient's diet. (4) Asthma Is this a current diagnosis for this admission?: Yes Plan: Not in exacerbation. Patient prefers to continue using her Breo here and does not want any new medication or inhalers started here. Appears Breo is not on the hospital formulary, patient may use her own inhaler. (5) Insomnia Is this a current diagnosis for this admission?: Yes Plan: May resume Lunesta prn for insomnia if cleared for intake of pills by primary service. - Time Time Spent: 30 to 50 Minutes
[2018-05-19] MEDS: ZOLPIDEM TARTRATE 5 MG TABLET PO PRN (23:08)
[2018-05-20] MEDS: DEXTROSE 5%-LACTATED RINGERS 1,000 ML IV PRN ×2 (03:20→10:19)
--- NOTE | 2018-05-20 09:58 | RADIOLOGY REPORT (SQ) ---
EXAM DESCRIPTION: ABDOMEN 2 VIEWS COMPLETED DATE/TIME: 05/20/2018 9:29 am REASON FOR STUDY: interval change COMPARISON: 05/19/2018 and 05/18/2018. NUMBER OF VIEWS: Two views. TECHNIQUE: Supine and erect/decubitus radiographic images of the abdomen acquired. LIMITATIONS: None. FINDINGS: FREE AIR: None. No abnormal gas collections. LUNG BASES: Clear. BOWEL GAS PATTERN: Small bowel dilation with air-fluid levels unchanged. CALCIFICATIONS: No suspicious calcifications. SOFT TISSUES: No gross mass or suggestion of organomegaly. HARDWARE: Nasogastric tube with tip in stomach. BONES: No acute fracture. No worrisome bone lesions. OTHER: No other significant finding. IMPRESSION: NO CHANGE IN APPEARANCE OF THE ABDOMEN. SMALL BOWEL OBSTRUCTION. TECHNICAL DOCUMENTATION: JOB ID: [id number] [employer]- All Rights Reserved Reading location - IP/workstation name: [email or web address]
[2018-05-20] MEDS: PANTOPRAZOLE SODIUM 40 MG VIAL IV SCH (10:17)
[2018-05-20] MEDS: ENOXAPARIN SODIUM INJ 40 MG/0.4 ML DISP.SYRIN SUBCUT SCH (10:18)
[2018-05-20] MEDS ORDERED: ROCURONIUM BROMIDE INJ 50 MG/5 ML VIAL IV ONE (10:20)
[2018-05-20] MEDS ORDERED: GLYCOPYRROLATE 1 MG/5 ML SYRINGE ONE (10:20)
[2018-05-20] MEDS ORDERED: NEOSTIGMINE METHYLSULFATE 10 MG/10 ML VIAL ONE (10:20)
[2018-05-20] MEDS ORDERED: DEXAMETHASONE SOD PHOSPHATE INJ 4 MG/1 ML VIAL ONE (10:20)
[2018-05-20] MEDS ORDERED: ONDANSETRON HCL INJ/PF 4 MG/2 ML SDV ONE (10:20)
[2018-05-20] MEDS ORDERED: SUCCINYLCHOLINE CHLORIDE INJ 200 MG/10 ML VIAL ONE (10:20)
[2018-05-20] MEDS ORDERED: HYDROMORPHONE HCL INJ/PF 2 MG/ML AMPULE ONE (14:49)
[2018-05-20] MEDS ORDERED: FENTANYL CITRATE INJ/PF 250 MCG/5 ML AMPULE ONE (14:49)
[2018-05-20] MEDS ORDERED: MIDAZOLAM 2 MG/2 ML INJ ONE (14:50)
[2018-05-20] MEDS ORDERED: PROPOFOL INJ 200 MG/20 ML VIAL IV ONE (14:50)
[2018-05-20] MEDS ORDERED: BUPIVACAINE HCL 0.5 % INJ/PF 30 ML SDV ONE (15:06)
[2018-05-20] MEDS ORDERED: CEFAZOLIN INJ 1 GM VIAL ONE (15:12)
--- NOTE | 2018-05-20 15:15 | PDOC PROGRESS REPORT ---
Subjective Progress Note for:: 05/20/18 Subjective:: MINDI SPENCER is a 62 year old female with a past medical history of well- controlled hypertension, prediabetes, hyperlipidemia, and asthma who was admitted for partial small bowel obstruction under surgery service. Hospitalist service was consulted for medical management. Patient's medical issues have been well controlled. She has history of prediabetes with hemoglobin A1c of 6.4 and is started on metformin by her PCP. Hemoglobin on admission 5.4. Attention is also well managed and controlled. She has history of asthma and stated she had one exacerbation of asthma this is Breo for it. Has history of insomnia and takes Lunesta at night. 05/20/2018. I was able to see patient post laparoscopic surgery. Patient does not seem to be in acute distress however she is sedated but arousable and follows commands. Reason For Visit: SMALL BOWEL OBSTRUCTION Physical Exam Vital Signs: Temp Pulse Resp BP Pulse Ox 98.2 F 79 17 138/74 H 95 05/20/18 13:22 05/20/18 13:22 05/20/18 13:22 05/20/18 13:22 05/20/18 13:22 Intake & Output 05/19/18 05/20/18 05/21/18 06:59 06:59 06:59 Intake Total 1977 3715 1000 Output Total 750 800 Balance 1227 2915 1000 Weight 73.7 kg 78.7 kg General appearance: PRESENT: no acute distress, well-developed, well-nourished Head exam: PRESENT: atraumatic, normocephalic Eye exam: PRESENT: conjunctiva pink, EOMI, PERRLA. ABSENT: scleral icterus Ear exam: PRESENT: normal external ear exam Mouth exam: PRESENT: moist, tongue midline Neck exam: ABSENT: carotid bruit, JVD, lymphadenopathy, thyromegaly Respiratory exam: PRESENT: clear to auscultation phylicia. ABSENT: rales, rhonchi, wheezes Cardiovascular exam: PRESENT: RRR. ABSENT: diastolic murmur, rubs, systolic murmur Pulses: PRESENT: normal dorsalis pedis pul Vascular exam: PRESENT: normal capillary refill GI/Abdominal exam: PRESENT: normal bowel sounds, soft, other - Patient is just out of operating room was able to see her in the PACU.. ABSENT: distended, guarding, mass, organolmegaly, rebound, tenderness Rectal exam: PRESENT: deferred Extremities exam: PRESENT: full ROM. ABSENT: calf tenderness, clubbing, pedal edema Neurological exam: PRESENT: alert, awake, oriented to person, oriented to place , oriented to time, oriented to situation, CN II-XII grossly intact. ABSENT: motor sensory deficit Psychiatric exam: PRESENT: appropriate affect, normal mood. ABSENT: homicidal ideation, suicidal ideation Skin exam: PRESENT: dry, intact, warm. ABSENT: cyanosis, rash Results Laboratory Results: 05/19/18 04:05 05/19/18 04:05 Impressions: Abdomen/Pelvis CT 05/18/18 09:25 IMPRESSION: 1. Dilated proximal small bowel consistent with a small-bowel obstruction. Possible transition point within the for right lower quadrant the abdomen. Small amount of free fluid within the abdomen/pelvis. 2. Cholelithiasis. 3. Indeterminate right adrenal nodule. Nonemergent adrenal protocol CT or MRI is recommended for further evaluation. 4. Diverticulosis without diverticulitis. KUB X-Ray 05/19/18 06:00 IMPRESSION: NO CHANGE. CONTINUED SMALL BOWEL DILATION. Abdomen X-Ray 05/20/18 07:00 IMPRESSION: NO CHANGE IN APPEARANCE OF THE ABDOMEN. SMALL BOWEL OBSTRUCTION. Assessment & Plan - Diagnosis (1) Small bowel obstruction Is this a current diagnosis for this admission?: Yes Plan: Status post laparoscopic surgery. Please refer to surgery note. (2) Asthma Is this a current diagnosis for this admission?: Yes Plan: Not in exacerbation. Change current meds. Patient PCP follow-up. (3) Pre-diabetes Is this a current diagnosis for this admission?: Yes Plan: Controlled. Hold oral hypoglycemics. During Accu-Chek, diabetic diet. Continue sliding scale insulin. Start metformin upon discharge. PCP follow-up. (4) Hypertension Qualifiers: Hypertension type: secondary to other renal disorders Qualified Code(s): I15.1 - Hypertension secondary to other renal disorders; N28.89 - Other specified disorders of kidney and ureter; N28.89 - Other specified disorders of kidney and ureter Is this a current diagnosis for this admission?: Yes Plan: Normotensive and euvolemic. Monitor vitals. Restart losartan upon discharge. Outpatient PCP follow-up. (5) Insomnia Is this a current diagnosis for this admission?: Yes Plan: Resume home medications.
[2018-05-20] MEDS ORDERED: MORPHINE SULFATE 10 MG/ML INJ IV PRN (16:44)
[2018-05-20] MEDS ORDERED: PROMETHAZINE HCL INJ 25 MG/1 ML VIAL IV PRN ×2 (16:44)
[2018-05-20] MEDS ORDERED: MEPERIDINE HCL/PF INJ 25 MG/1 ML DISP.SYRIN IV PRN (16:44)
[2018-05-20] MEDS ORDERED: FENTANYL CITRATE INJ/PF 100 MCG/2 ML AMPUL IV PRN ×3 (16:44)
[2018-05-20] MEDS ORDERED: DIPHENHYDRAMINE HCL 50 MG/ML VIAL IV PRN (16:44)
[2018-05-20] MEDS ORDERED: OXYCODONE-ACETAMINOPHEN 5-325 MG TABLET PO PRN ×2 (16:44)
--- NOTE | 2018-05-20 16:47 | RADIOLOGY REPORT (SQ) ---
EXAM DESCRIPTION: SMALL BOWEL SERIES COMPLETED DATE/TIME: 05/20/2018 4:36 pm REASON FOR STUDY: bowel obstruction location COMPARISON: None. FLUOROSCOPY TIME: Fluoroscopy not performed. 4 images saved to PACS. LIMITATIONS: The study was terminated 1 hour and 30 minutes when the decision was made to take the p atient to surgery. PROCEDURE: Initial program checker image of abdomen acquired, followed by administration of oral contrast. Se rial radiographic images acquired. All images stored on PACS. FINDINGS: DEBIT AGENT KUB: Dilated small bowel. No abnormal calcifications. Soft tissue planes normal. STOMACH: Normal distention without abnormality. SMALL BOWEL: Contrast progresses slowly into the proximal small bowel which is diffusely dilated. OTHER: No other significant finding. IMPRESSION: LIMITED STUDY WHICH WAS TERMINATED EARLY. DILATED SMALL BOWEL CONSISTENT WITH SMALL BOW EL OBSTRUCTION. COMMENT: Quality ID [id number]: Final reports for procedures using fluoroscopy that document radiation exp osure indices, or exposure time and number of fluorographic images (if radiation exposure indices are not available) TECHNICAL DOCUMENTATION: JOB ID: [id number] [employer]- All Rights Reserved Reading location - IP/workstation name: [email or web address]
[2018-05-20] MEDS: FENTANYL CITRATE INJ/PF 100 MCG/2 ML AMPUL ONE ×2 (17:57→18:05)
--- NOTE | 2018-05-20 21:36 | OPERATIVE REPORT E ---
Operative Report NAME: MINDI SPENCER : 1955 AGE: 62Y DATE OF SURGERY: 05/20/2018 ROOM: 530 PREOPERATIVE DIAGNOSIS: SMALL BOWEL OBSTRUCTION DUE TO ADHESIONS. POSTOPERATIVE DIAGNOSIS: SMALL BOWEL OBSTRUCTION DUE TO ADHESIONS. OPERATION: Exploratory laparotomy, lysis of adhesions. SURGEON: JACOB CARRERO M.D. ANESTHESIA: General. INDICATION: This is a 62-year-old female who had a previous hysterectomy about 30 years and apparently about 20 years ago. She has been doing well until about 2 days prior to admission on 05/18/18, started having nausea and vomiting. She came in on 05/18/18, had a CT scan of the abdomen which showed a small bowel obstruction. She had an NG tube which has been draining. However, she claims she has been passing flatus. Obstruction series done today showed still obstruction and a follow up Gastrografin swallow today also showed obstruction. The patient did not have a lot of pains, but NG tube has been draining though it was held off last night. DESCRIPTION OF PROCEDURE: After adequate general anesthesia the patient was placed in supine position and the abdomen prepped and draped in the usual sterile fashion. A midline incision was then made from the midepigastric area down to the mid suprapubic area. The fascia was then opened and there were some adhesions noted. The fascia was divided between 2 fingers starting from above the umbilicus to distal just above the symphysis pubis. There was some fluid lightly sanguinous. The small bowel appears to be distended. The incision needed to be extended distally towards the symphysis pubis and proximal extended to the midepigastric area. We then used a Bookwalter retractor. The bowel was further palpated and there appears to be a thick band about 1 cm wide at the pelvis crossing the small bowel just beyond the ileocecal valve. The adhesion was divided sharply and the bowel released. The bowel appears to be viable, though there appears to be a compression a few cm from the ileocecal valve. This area also appeared to be viable. The bowel was then run from the ileocecal valve towards the area of the ligament of Treitz. The area of the proximal ileum, however, showed another area of compression and it appears that the patient is developing almost like a closed loop obstruction. The area on the proximal ileum also appeared to be viable with good peristalsis. No other abnormality in the small bowel. No other adhesions of the small bowel noted other than the band that was divided. There was adhesions of the omentum towards the area of the pelvis was then lysed. The abdominal cavity was then irrigated with a couple of liters of saline. A piece of septrafilm was placed on the pelvis to prevent adhesions. Next omentum was then put back over the small bowel and fascia subsequently closed with running suture using 1 PDS double sranded. The subcu fascia was then irrigated with saline solution and the fascia subsequently infiltrated with 30 mL of Marcaine 0.25% with epinephrine. The skin was then closed with lia. Sterile dressing was placed over the operative site. Needle, instrument, and sponge count were all correct. Estimated blood loss about 100 mL. The patient tolerated the procedure well and brought to the recovery room extubated. DICTATING PHYSICIAN: JACOB CARRERO M.D. [id number] PHY#: [id number] ID: [id number] JOB#: [id number] ACCT: [id number] cc:JACOB CARRERO M.D. > MTDD
[2018-05-20] MEDS: MORPHINE SULFATE 10 MG/ML INJ IV PRN (21:54)
[2018-05-20] MEDS: CEFAZOLIN 1 GM/D5W RTU 1 GM/50 ML RTUPB IV SCH (21:55)
[2018-05-20] MEDS: NORMAL SALINE 1000 ML 1,000 ML IV PRN (21:57)
[2018-05-21] MEDS: ZOLPIDEM TARTRATE 5 MG TABLET PO PRN (01:42)
[2018-05-21] MEDS: ONDANSETRON HCL INJ/PF 4 MG/2 ML SDV IV PRN (01:42)
[2018-05-21] MEDS: CEFAZOLIN 1 GM/D5W RTU 1 GM/50 ML RTUPB IV SCH ×2 (05:21→15:45)
[2018-05-21] MEDS: NORMAL SALINE 1000 ML 1,000 ML IV PRN ×3 (05:21→20:22)
[2018-05-21 05:25] LABS: ABSOLUTE LYMPHOCYTES (AUTO) 0.8 10^3/uL (0.5-4.7); BASOPHILS % (AUTO) 0.1 % (0-2); EOSINOPHILS % (AUTO) 0.1 % (0-6); HEMATOCRIT 38.2 % (36.0-47.0); HEMOGLOBIN 12.8 g/dL (12.0-15.5); LYMPHOCYTES % (AUTO) 12.3 % (13-45); MEAN CORPUSCULAR HEMOGLOBIN 30.7 pg (27.0-33.4); MEAN CORPUSCULAR HGB CONC 33.5 g/dL (32.0-36.0); MEAN CORPUSCULAR VOLUME 92 fl (80-97); MONOCYTES % (AUTO) 14.6 % (3-13); PLATELET COUNT 153 10^3/uL (150-450); RED BLOOD COUNT 4.16 10^6/uL (3.72-5.28); RED CELL DISTRIBUTION WIDTH 14.1 % (11.5-14.0); SEGMENTED NEUTROPHILS % (AUTO) 72.9 % (42-78); TOTAL CELLS COUNTED % (AUTO) 100 %; WHITE BLOOD COUNT 6.9 10^3/uL (4.0-10.5)
[2018-05-21 05:44] LABS: ALANINE AMINOTRANSFERASE 16 U/L (9-52); ALBUMIN 2.6 g/dL (3.5-5.0); ALKALINE PHOSPHATASE 30 U/L (38-126); ANION GAP 9 (5-19); ASPARTATE AMINO TRANSFERASE 15 U/L (14-36); BILIRUBIN,DIRECT 0.2 mg/dL (0.0-0.4); BILIRUBIN,TOTAL 0.6 mg/dL (0.2-1.3); BLOOD UREA NITROGEN 11 mg/dL (7-20); CALCIUM 8.2 mg/dL (8.4-10.2); CARBON DIOXIDE 32 mmol/L (22-30); CHLORIDE 103 mmol/L (98-107); GLUCOSE 125 mg/dL (75-110); POTASSIUM 3.3 mmol/L (3.6-5.0); SODIUM 143.5 mmol/L (137-145); TOTAL PROTEIN 4.7 g/dL (6.3-8.2)
--- NOTE | 2018-05-21 08:22 | EKG REPORT ---
SEVERITY:- ABNORMAL ECG - SINUS RHYTHM NONSPECIFIC REPOL ABNORMALITY, DIFFUSE LEADS : Confirmed by: Elle Diamond MD 21-May-2018 08:21:48
[2018-05-21] MEDS: ENOXAPARIN SODIUM INJ 40 MG/0.4 ML DISP.SYRIN SUBCUT SCH (10:41)
[2018-05-21] MEDS: PANTOPRAZOLE SODIUM 40 MG VIAL IV SCH (10:42)
[2018-05-21] MEDS ORDERED: POTASSI CL 20 MEQ/50 ML RIDER 20 MEQ/50 ML RTUPB IV ONE (11:00)
[2018-05-21] MEDS: MORPHINE SULFATE 10 MG/ML INJ IV PRN (12:52)
[2018-05-21 13:11] LABS: ABSOLUTE MONOCYTES (AUTO) 1.2 10^3/uL (0.1-1.4); ABSOLUTE NEUT (AUTO) 4.2 10^3/uL (1.7-8.2); BASOPHILS % (AUTO) 0.2 % (0-2); EOSINOPHILS % (AUTO) 0.3 % (0-6); HEMATOCRIT 39.5 % (36.0-47.0); HEMOGLOBIN 13.4 g/dL (12.0-15.5); LYMPHOCYTES % (AUTO) 15.9 % (13-45); MEAN CORPUSCULAR HEMOGLOBIN 31.1 pg (27.0-33.4); MEAN CORPUSCULAR HGB CONC 33.8 g/dL (32.0-36.0); MEAN CORPUSCULAR VOLUME 92 fl (80-97); MONOCYTES % (AUTO) 18.2 % (3-13); PLATELET COUNT 167 10^3/uL (150-450); RED BLOOD COUNT 4.29 10^6/uL (3.72-5.28); RED CELL DISTRIBUTION WIDTH 14.1 % (11.5-14.0); SEGMENTED NEUTROPHILS % (AUTO) 65.4 % (42-78); TOTAL CELLS COUNTED % (AUTO) 100 %; WHITE BLOOD COUNT 6.4 10^3/uL (4.0-10.5)
--- NOTE | 2018-05-21 15:22 | PDOC PROGRESS REPORT ---
Subjective Progress Note for:: 05/21/18 Subjective:: MINDI SPENCER is a 62 year old female with a past medical history of well- controlled hypertension, prediabetes, hyperlipidemia, and asthma who was admitted for partial small bowel obstruction under surgery service. Hospitalist service was consulted for medical management. Patient's medical issues have been well controlled. She has history of prediabetes with hemoglobin A1c of 6.4 and is started on metformin by her PCP. Hemoglobin on admission 5.4. Attention is also well managed and controlled. She has history of asthma and stated she had one exacerbation of asthma this is Breo for it. Has history of insomnia and takes Lunesta at night. 05/21/2018. Postop day 2. No acute events overnight. Patient is resting comfortably in her bed in no apparent distress. Complaining of abdominal pain and also being very hungry. She has been able to pass gas however she has not had any bowel movement. Currently NG tube in. Denies any fever, chills, nausea , vomiting, diarrhea, constipation, chest pain or any shortness of breath. Reason For Visit: SMALL BOWEL OBSTRUCTION Physical Exam Vital Signs: Temp Pulse Resp BP Pulse Ox 99.4 F 83 16 140/69 H 92 05/21/18 12:12 05/21/18 12:12 05/21/18 12:12 05/21/18 12:12 05/21/18 12:12 Intake & Output 05/20/18 05/21/18 05/22/18 06:59 06:59 06:59 Intake Total 3715 6000 1000 Output Total 800 875 Balance 2915 5125 1000 Weight 78.7 kg 75.6 kg General appearance: PRESENT: no acute distress, well-developed, well-nourished Head exam: PRESENT: atraumatic, normocephalic Eye exam: PRESENT: conjunctiva pink, EOMI, PERRLA. ABSENT: scleral icterus Ear exam: PRESENT: normal external ear exam Mouth exam: PRESENT: moist, tongue midline Neck exam: ABSENT: carotid bruit, JVD, lymphadenopathy, thyromegaly Respiratory exam: PRESENT: clear to auscultation phylicia. ABSENT: rales, rhonchi, wheezes Cardiovascular exam: PRESENT: RRR. ABSENT: diastolic murmur, rubs, systolic murmur Pulses: PRESENT: normal dorsalis pedis pul Vascular exam: PRESENT: normal capillary refill GI/Abdominal exam: PRESENT: normal bowel sounds, soft, other. ABSENT: distended , guarding, mass, organolmegaly, rebound, tenderness Rectal exam: PRESENT: deferred Extremities exam: PRESENT: full ROM. ABSENT: calf tenderness, clubbing, pedal edema Neurological exam: PRESENT: alert, awake, oriented to person, oriented to place , oriented to time, oriented to situation, CN II-XII grossly intact. ABSENT: motor sensory deficit Psychiatric exam: PRESENT: appropriate affect, normal mood. ABSENT: homicidal ideation, suicidal ideation Skin exam: PRESENT: dry, intact, warm. ABSENT: cyanosis, rash Results Laboratory Results: 05/21/18 12:30 05/21/18 03:53 05/21/18 05/21/18 05/21/18 03:53 03:53 12:30 WBC 6.9 6.4 RBC 4.16 4.29 Hgb 12.8 13.4 Hct 38.2 39.5 MCV 92 92 MCH 30.7 31.1 MCHC 33.5 33.8 RDW 14.1 H 14.1 H Plt Count 153 167 Seg Neutrophils % 72.9 65.4 Lymphocytes % 12.3 L 15.9 Monocytes % 14.6 H 18.2 H Eosinophils % 0.1 0.3 Basophils % 0.1 0.2 Absolute Neutrophils 5.0 4.2 Absolute Lymphocytes 0.8 1.0 Absolute Monocytes 1.0 1.2 Absolute Eosinophils 0.0 0.0 Absolute Basophils 0.0 0.0 Sodium 143.5 Potassium 3.3 L Chloride 103 Carbon Dioxide 32 H Anion Gap 9 BUN 11 Creatinine 0.74 Est GFR ( Amer) > 60 Est GFR (Non-Af Amer) > 60 Glucose 125 H Calcium 8.2 L Total Bilirubin 0.6 AST 15 ALT 16 Alkaline Phosphatase 30 L Total Protein 4.7 L Albumin 2.6 L Impressions: Abdomen/Pelvis CT 05/18/18 09:25 IMPRESSION: 1. Dilated proximal small bowel consistent with a small-bowel obstruction. Possible transition point within the for right lower quadrant the abdomen. Small amount of free fluid within the abdomen/pelvis. 2. Cholelithiasis. 3. Indeterminate right adrenal nodule. Nonemergent adrenal protocol CT or MRI is recommended for further evaluation. 4. Diverticulosis without diverticulitis. KUB X-Ray 05/19/18 06:00 IMPRESSION: NO CHANGE. CONTINUED SMALL BOWEL DILATION. Small Bowel X-Ray 05/20/18 00:00 IMPRESSION: LIMITED STUDY WHICH WAS TERMINATED EARLY. DILATED SMALL BOWEL CONSISTENT WITH SMALL BOWEL OBSTRUCTION. Abdomen X-Ray 05/20/18 07:00 IMPRESSION: NO CHANGE IN APPEARANCE OF THE ABDOMEN. SMALL BOWEL OBSTRUCTION. Assessment & Plan - Diagnosis (1) Small bowel obstruction Is this a current diagnosis for this admission?: Yes Plan: Postop day 2 post exploratory laparoscopic surgery for small bowel obstruction.. Please refer to surgical note. Patient is medically stable. Will sign off at this point. Thank you for the very interesting consult. Please reconsult if any needed. (2) Asthma Is this a current diagnosis for this admission?: Yes Plan: Not in exacerbation. Change current meds. Patient PCP follow-up. (3) Pre-diabetes Is this a current diagnosis for this admission?: Yes Plan: Controlled. Hold oral hypoglycemics. During Accu-Chek, diabetic diet. Continue sliding scale insulin. Start metformin upon discharge. PCP follow-up. (4) Hypertension Qualifiers: Hypertension type: secondary to other renal disorders Qualified Code(s): I15.1 - Hypertension secondary to other renal disorders; N28.89 - Other specified disorders of kidney and ureter; N28.89 - Other specified disorders of kidney and ureter Is this a current diagnosis for this admission?: Yes Plan: Normotensive and euvolemic. Monitor vitals. Restart losartan upon discharge. Outpatient PCP follow-up. (5) Insomnia Is this a current diagnosis for this admission?: Yes Plan: Resume home medications. (6) Hypokalemia Is this a current diagnosis for this admission?: Yes Plan: Replaced. CMP tomorrow.
--- NOTE | 2018-05-21 17:24 | PDOC PROGRESS REPORT ---
Subjective Progress Note for:: 05/21/18 Subjective:: just mild incisional pains Reason For Visit: SMALL BOWEL OBSTRUCTION Physical Exam Vital Signs: Temp Pulse Resp BP Pulse Ox 98.6 F 88 16 143/77 H 92 05/21/18 15:04 05/21/18 15:04 05/21/18 15:04 05/21/18 15:04 05/21/18 15:04 Intake & Output 05/20/18 05/21/18 05/22/18 06:59 06:59 06:59 Intake Total 3715 6000 1100 Output Total 800 875 Balance 2915 5125 1100 Weight 78.7 kg 75.6 kg Exam: NGT drained 800 ccs of greenish fluid Abd is soft with binder in place Results Laboratory Results: 05/21/18 12:30 05/21/18 03:53 05/21/18 05/21/18 05/21/18 03:53 03:53 12:30 WBC 6.9 6.4 RBC 4.16 4.29 Hgb 12.8 13.4 Hct 38.2 39.5 MCV 92 92 MCH 30.7 31.1 MCHC 33.5 33.8 RDW 14.1 H 14.1 H Plt Count 153 167 Seg Neutrophils % 72.9 65.4 Lymphocytes % 12.3 L 15.9 Monocytes % 14.6 H 18.2 H Eosinophils % 0.1 0.3 Basophils % 0.1 0.2 Absolute Neutrophils 5.0 4.2 Absolute Lymphocytes 0.8 1.0 Absolute Monocytes 1.0 1.2 Absolute Eosinophils 0.0 0.0 Absolute Basophils 0.0 0.0 Sodium 143.5 Potassium 3.3 L Chloride 103 Carbon Dioxide 32 H Anion Gap 9 BUN 11 Creatinine 0.74 Est GFR ( Amer) > 60 Est GFR (Non-Af Amer) > 60 Glucose 125 H Calcium 8.2 L Total Bilirubin 0.6 AST 15 ALT 16 Alkaline Phosphatase 30 L Total Protein 4.7 L Albumin 2.6 L Impressions: Abdomen/Pelvis CT 05/18/18 09:25 IMPRESSION: 1. Dilated proximal small bowel consistent with a small-bowel obstruction. Possible transition point within the for right lower quadrant the abdomen. Small amount of free fluid within the abdomen/pelvis. 2. Cholelithiasis. 3. Indeterminate right adrenal nodule. Nonemergent adrenal protocol CT or MRI is recommended for further evaluation. 4. Diverticulosis without diverticulitis. KUB X-Ray 05/19/18 06:00 IMPRESSION: NO CHANGE. CONTINUED SMALL BOWEL DILATION. Small Bowel X-Ray 05/20/18 00:00 IMPRESSION: LIMITED STUDY WHICH WAS TERMINATED EARLY. DILATED SMALL BOWEL CONSISTENT WITH SMALL BOWEL OBSTRUCTION. Abdomen X-Ray 05/20/18 07:00 IMPRESSION: NO CHANGE IN APPEARANCE OF THE ABDOMEN. SMALL BOWEL OBSTRUCTION. Assessment & Plan - Diagnosis (1) Small bowel obstruction due to postoperative adhesions Is this a current diagnosis for this admission?: Yes - Time Time Spent with patient: 15-24 minutes - Inpatient Certification Medical Necessity: Need Close Monitoring Due to Risk of Patient Decompensation, Need For IV Fluids, Need for Pain Control - Plan Summary Plan Summary: POD#1 Post Ex Lap and release of adhesions causing SBO Keep NGT Correct lytes Continue hydration Inc spirometry Lovenox
[2018-05-22] MEDS: ZOLPIDEM TARTRATE 5 MG TABLET PO PRN ×2 (02:17→22:45)
[2018-05-22 04:52] LABS: ANION GAP 8 (5-19); BLOOD UREA NITROGEN 14 mg/dL (7-20); CALCIUM 8.2 mg/dL (8.4-10.2); CARBON DIOXIDE 32 mmol/L (22-30); CHLORIDE 104 mmol/L (98-107); GLUCOSE 127 mg/dL (75-110); SODIUM 143.7 mmol/L (137-145)
[2018-05-22] MEDS: NORMAL SALINE 1000 ML 1,000 ML IV PRN (05:49)
[2018-05-22] MEDS: POTASSIUM CHLORIDE 20 MEQ/50 ML RTU IV SCH ×3 (05:58→13:02)
[2018-05-22] MEDS ORDERED: LOSARTAN POTASSIUM 50 MG TABLET PO SCH (10:00)
[2018-05-22] MEDS: ENOXAPARIN SODIUM INJ 40 MG/0.4 ML DISP.SYRIN SUBCUT SCH (10:01)
[2018-05-22] MEDS: LOSARTAN POTASSIUM 50 MG TABLET PO SCH (10:01)
[2018-05-22] MEDS ORDERED: MAGNESIUM SULFATE INJ 8 MEQ/2 ML IV ONE (12:13)
[2018-05-22] MEDS ORDERED: MAGNESIUM SULFATE/D5W 1 GM/100 ML RTUPB IV ONE (12:30)
[2018-05-22] MEDS ORDERED: FLUTICASONE PO SCH (15:30)
[2018-05-22] MEDS ORDERED: VILANTEROL PO SCH (15:30)
--- NOTE | 2018-05-22 15:30 | PDOC PROGRESS REPORT ---
Subjective Progress Note for:: 05/22/18 Reason For Visit: SMALL BOWEL OBSTRUCTION Physical Exam Vital Signs: Temp Pulse Resp BP Pulse Ox 99.0 F 88 18 143/74 H 92 05/22/18 11:08 05/22/18 11:08 05/22/18 11:08 05/22/18 11:08 05/22/18 11:08 Intake & Output 05/21/18 05/22/18 05/23/18 06:59 06:59 06:59 Intake Total 6000 2887 100 Output Total 875 1400 Balance 5125 1487 100 Weight 75.6 kg 78.6 kg Results Laboratory Results: 05/21/18 12:30 05/22/18 03:47 05/22/18 05/22/18 03:47 03:47 Sodium 143.7 Potassium 3.0 L* Chloride 104 Carbon Dioxide 32 H Anion Gap 8 BUN 14 Creatinine 0.63 Est GFR ( Amer) > 60 Est GFR (Non-Af Amer) > 60 Glucose 127 H Calcium 8.2 L Magnesium 1.5 L Impressions: Abdomen/Pelvis CT 05/18/18 09:25 IMPRESSION: 1. Dilated proximal small bowel consistent with a small-bowel obstruction. Possible transition point within the for right lower quadrant the abdomen. Small amount of free fluid within the abdomen/pelvis. 2. Cholelithiasis. 3. Indeterminate right adrenal nodule. Nonemergent adrenal protocol CT or MRI is recommended for further evaluation. 4. Diverticulosis without diverticulitis. KUB X-Ray 05/19/18 06:00 IMPRESSION: NO CHANGE. CONTINUED SMALL BOWEL DILATION. Small Bowel X-Ray 05/20/18 00:00 IMPRESSION: LIMITED STUDY WHICH WAS TERMINATED EARLY. DILATED SMALL BOWEL CONSISTENT WITH SMALL BOWEL OBSTRUCTION. Abdomen X-Ray 05/20/18 07:00 IMPRESSION: NO CHANGE IN APPEARANCE OF THE ABDOMEN. SMALL BOWEL OBSTRUCTION. Assessment & Plan - Diagnosis (1) Small bowel obstruction Is this a current diagnosis for this admission?: Yes - Plan Summary Plan Summary: This is a 62-year-old female status post exploratory laparotomy for a small bowel obstruction. She is doing very well today. She is passing flatus. Her pain is well controlled. I will remove the patient's NG tube, remove the patient's Muniz catheter, encourage her to ambulate, initiate incentive spirometry, re-order her home meds, and allow her to have ice chips and popsicles. Monitor closely for nausea and/or vomiting. Replace potassium and magnesium. Repeat labs tomorrow.
[2018-05-22] MEDS: CYANOCOBALAMIN (VITAMIN B-12) 1,000 MCG TABLET PO SCH (16:41)
[2018-05-22] MEDS: MAGNESIUM SULFATE 1 GM/D5W 100 ML IV SCH ×2 (16:41→20:01)
[2018-05-22 22:18] LABS: ABSOLUTE EOSINOPHILS # (AUTO) 0.1 10^3/uL (0.0-0.6); ABSOLUTE LYMPHOCYTES (AUTO) 1.6 10^3/uL (0.5-4.7); ABSOLUTE MONOCYTES (AUTO) 1.2 10^3/uL (0.1-1.4); ABSOLUTE NEUT (AUTO) 5.1 10^3/uL (1.7-8.2); BASOPHILS % (AUTO) 0.3 % (0-2); EOSINOPHILS % (AUTO) 1.1 % (0-6); HEMATOCRIT 34.4 % (36.0-47.0); HEMOGLOBIN 11.7 g/dL (12.0-15.5); LYMPHOCYTES % (AUTO) 20.2 % (13-45); MEAN CORPUSCULAR HEMOGLOBIN 31.2 pg (27.0-33.4); MEAN CORPUSCULAR HGB CONC 33.9 g/dL (32.0-36.0); MEAN CORPUSCULAR VOLUME 92 fl (80-97); MONOCYTES % (AUTO) 15.2 % (3-13); PLATELET COUNT 152 10^3/uL (150-450); RED BLOOD COUNT 3.73 10^6/uL (3.72-5.28); RED CELL DISTRIBUTION WIDTH 13.4 % (11.5-14.0); SEGMENTED NEUTROPHILS % (AUTO) 63.2 % (42-78); TOTAL CELLS COUNTED % (AUTO) 100 %
[2018-05-23 04:56] LABS: ABSOLUTE EOSINOPHILS # (AUTO) 0.2 10^3/uL (0.0-0.6); ABSOLUTE LYMPHOCYTES (AUTO) 1.6 10^3/uL (0.5-4.7); ABSOLUTE MONOCYTES (AUTO) 1.1 10^3/uL (0.1-1.4); ABSOLUTE NEUT (AUTO) 5.5 10^3/uL (1.7-8.2); BASOPHILS % (AUTO) 0.3 % (0-2); EOSINOPHILS % (AUTO) 1.9 % (0-6); HEMATOCRIT 33.1 % (36.0-47.0); HEMOGLOBIN 11.3 g/dL (12.0-15.5); LYMPHOCYTES % (AUTO) 18.9 % (13-45); MEAN CORPUSCULAR HEMOGLOBIN 31.4 pg (27.0-33.4); MEAN CORPUSCULAR HGB CONC 34.2 g/dL (32.0-36.0); MEAN CORPUSCULAR VOLUME 92 fl (80-97); MONOCYTES % (AUTO) 12.9 % (3-13); PLATELET COUNT 147 10^3/uL (150-450); RED CELL DISTRIBUTION WIDTH 13.8 % (11.5-14.0); TOTAL CELLS COUNTED % (AUTO) 100 %; WHITE BLOOD COUNT 8.4 10^3/uL (4.0-10.5)
[2018-05-23 05:17] LABS: ANION GAP 10 (5-19); BLOOD UREA NITROGEN 10 mg/dL (7-20); CALCIUM 7.9 mg/dL (8.4-10.2); CARBON DIOXIDE 30 mmol/L (22-30); CHLORIDE 101 mmol/L (98-107); GLUCOSE 107 mg/dL (75-110); SODIUM 141.3 mmol/L (137-145)
[2018-05-23] MEDS: LANSOPRAZOLE 15 MG TAB.RAP.DR PO SCH (05:22)
[2018-05-23 05:26] LABS: POTASSIUM 2.7 mmol/L (3.6-5.0)
[2018-05-23] MEDS: POTASSIUM CHLORIDE 20 MEQ/50 ML RTU IV SCH ×2 (06:12→09:48)
--- NOTE | 2018-05-23 09:12 | PDOC PROGRESS REPORT ---
Subjective Progress Note for:: 05/23/18 Subjective:: More comfortable + flatus Reason For Visit: SMALL BOWEL OBSTRUCTION Physical Exam Vital Signs: Temp Pulse Resp BP Pulse Ox 98.3 F 75 14 131/63 H 91 L 05/23/18 07:49 05/23/18 07:49 05/23/18 07:49 05/23/18 07:49 05/23/18 07:49 Intake & Output 05/22/18 05/23/18 05/24/18 06:59 06:59 06:59 Intake Total 2887 753 Output Total 1400 1150 Balance 1487 -397 Weight 78.6 kg 76.9 kg Exam: Incision clean and dry Abd is soft and non tender Results Laboratory Results: 05/23/18 03:49 05/23/18 03:49 05/22/18 05/23/18 05/23/18 22:00 03:49 03:49 WBC 8.0 8.4 RBC 3.73 3.60 L Hgb 11.7 L 11.3 L Hct 34.4 L 33.1 L MCV 92 92 MCH 31.2 31.4 MCHC 33.9 34.2 RDW 13.4 13.8 Plt Count 152 147 L Seg Neutrophils % 63.2 66.0 Lymphocytes % 20.2 18.9 Monocytes % 15.2 H 12.9 Eosinophils % 1.1 1.9 Basophils % 0.3 0.3 Absolute Neutrophils 5.1 5.5 Absolute Lymphocytes 1.6 1.6 Absolute Monocytes 1.2 1.1 Absolute Eosinophils 0.1 0.2 Absolute Basophils 0.0 0.0 Sodium 141.3 Potassium 2.7 L* Chloride 101 Carbon Dioxide 30 Anion Gap 10 BUN 10 Creatinine 0.47 L Est GFR ( Amer) > 60 Est GFR (Non-Af Amer) > 60 Glucose 107 Calcium 7.9 L Magnesium 2.1 Impressions: Abdomen/Pelvis CT 05/18/18 09:25 IMPRESSION: 1. Dilated proximal small bowel consistent with a small-bowel obstruction. Possible transition point within the for right lower quadrant the abdomen. Small amount of free fluid within the abdomen/pelvis. 2. Cholelithiasis. 3. Indeterminate right adrenal nodule. Nonemergent adrenal protocol CT or MRI is recommended for further evaluation. 4. Diverticulosis without diverticulitis. KUB X-Ray 05/19/18 06:00 IMPRESSION: NO CHANGE. CONTINUED SMALL BOWEL DILATION. Small Bowel X-Ray 05/20/18 00:00 IMPRESSION: LIMITED STUDY WHICH WAS TERMINATED EARLY. DILATED SMALL BOWEL CONSISTENT WITH SMALL BOWEL OBSTRUCTION. Abdomen X-Ray 05/20/18 07:00 IMPRESSION: NO CHANGE IN APPEARANCE OF THE ABDOMEN. SMALL BOWEL OBSTRUCTION. Assessment & Plan - Diagnosis (1) Small bowel obstruction due to postoperative adhesions Is this a current diagnosis for this admission?: Yes - Time Time Spent with patient: 15-24 minutes - Inpatient Certification Medical Necessity: Need For IV Fluids, Need for Pain Control - Plan Summary Plan Summary: Start Clears and advance as tolerated Possible discharge tomorrow if tolerating diet well.
[2018-05-23] MEDS: LOSARTAN POTASSIUM 50 MG TABLET PO SCH (09:19)
[2018-05-23] MEDS: CYANOCOBALAMIN (VITAMIN B-12) 1,000 MCG TABLET PO SCH (09:19)
[2018-05-23] MEDS: ENOXAPARIN SODIUM INJ 40 MG/0.4 ML DISP.SYRIN SUBCUT SCH (09:19)
[2018-05-23] MEDS: CHOLECALCIFEROL (D3) 1,000 UNIT TABLET PO SCH (09:20)
[2018-05-23] MEDS ORDERED: FLUTICASONE PO SCH ×2 (10:00→16:00)
[2018-05-23] MEDS ORDERED: (PENDING PHARMACY ID) (Cholecalciferol (Vitamin D3) [Vitamin D3] 2,000 UNIT) PO SCH (10:00)
[2018-05-23] MEDS ORDERED: VILANTEROL PO SCH ×2 (10:00→16:00)
[2018-05-23] MEDS ORDERED: (PENDING PHARMACY ID) (Esomeprazole Magnesium [Nexium 24hr] 20 MG) PO SCH (10:00)
[2018-05-23] MEDS: ZOLPIDEM TARTRATE 5 MG TABLET PO PRN (21:18)
[2018-05-23] MEDS ORDERED: ROSUVASTATIN CALCIUM PO SCH (22:00)
[2018-05-24 05:21] LABS: ABSOLUTE EOSINOPHILS # (AUTO) 0.3 10^3/uL (0.0-0.6); ABSOLUTE MONOCYTES (AUTO) 0.9 10^3/uL (0.1-1.4); ABSOLUTE NEUT (AUTO) 6.1 10^3/uL (1.7-8.2); BASOPHILS % (AUTO) 0.2 % (0-2); EOSINOPHILS % (AUTO) 2.7 % (0-6); HEMATOCRIT 36.1 % (36.0-47.0); HEMOGLOBIN 12.2 g/dL (12.0-15.5); LYMPHOCYTES % (AUTO) 21.7 % (13-45); MEAN CORPUSCULAR HEMOGLOBIN 30.9 pg (27.0-33.4); MEAN CORPUSCULAR HGB CONC 33.8 g/dL (32.0-36.0); MEAN CORPUSCULAR VOLUME 91 fl (80-97); MONOCYTES % (AUTO) 10.1 % (3-13); PLATELET COUNT 198 10^3/uL (150-450); RED BLOOD COUNT 3.95 10^6/uL (3.72-5.28); RED CELL DISTRIBUTION WIDTH 13.7 % (11.5-14.0); SEGMENTED NEUTROPHILS % (AUTO) 65.3 % (42-78); TOTAL CELLS COUNTED % (AUTO) 100 %; WHITE BLOOD COUNT 9.4 10^3/uL (4.0-10.5)
[2018-05-24 05:33] LABS: ANION GAP 5 (5-19); BLOOD UREA NITROGEN 6 mg/dL (7-20); CALCIUM 8.2 mg/dL (8.4-10.2); CARBON DIOXIDE 34 mmol/L (22-30); CHLORIDE 102 mmol/L (98-107); GLUCOSE 115 mg/dL (75-110); POTASSIUM 3.6 mmol/L (3.6-5.0); SODIUM 141.2 mmol/L (137-145)
[2018-05-24] MEDS: LANSOPRAZOLE 15 MG TAB.RAP.DR PO SCH (06:40)
[2018-05-24] MEDS: CHOLECALCIFEROL (D3) 1,000 UNIT TABLET PO SCH (09:29)
[2018-05-24] MEDS: LOSARTAN POTASSIUM 50 MG TABLET PO SCH (09:29)
[2018-05-24] MEDS: CYANOCOBALAMIN (VITAMIN B-12) 1,000 MCG TABLET PO SCH (09:29)
[2018-05-24] MEDS: ENOXAPARIN SODIUM INJ 40 MG/0.4 ML DISP.SYRIN SUBCUT SCH (09:29)
[2018-05-24 15:21] VITALS: BP 138/74
--- NOTE | 2018-05-25 19:21 | DISCHARGE SUMMARY E ---
Discharge Summary NAME: MINDI SPENCER : 1955 AGE: 62Y ADMITTED: 05/18/2018 DISCHARGED: 05/24/2018 FINAL DIAGNOSIS: Small bowel obstruction, due to adhesions. PROCEDURES: Exploratory laparotomy, lysis of adhesions and release of bowel obstruction on 05/20/2018. SURGEON: Jacob Rodriguez MD. HOSPITAL COURSE: Patient did have a previous history of hysterectomy and appendectomy in the past several years. She came in with evidence of bowel obstruction. CAT scan and KUB showed the bowel obstruction. She was admitted on 05/18/2018. On 05/20/2018, underwent an oral small bowel series with Gastrografin that showed persistent obstruction, and therefore taken to the OR on the same day, and found to have small bowel obstruction due to adhesions. She underwent exploratory laparotomy and lysis of adhesions on 05/20/2018, with Dr. Rodriguez. Postoperatively, patient gradually improved, and on 05/23/2018, NG tube was removed and started on a liquid diet. On 05/24/2018, patient tolerating a soft diet, passing flatus and bowel movement. No nausea or vomiting. Incision looked good. She was then discharged improved on 05/24/2018, with final diagnosis of a small bowel obstruction due to adhesions. Patient advised not to do any lifting more than 10 to 15 pounds for the next 4 weeks. She was advised just to take Tylenol or aspirin as needed for pain. She feels that this should be sufficient for pain control. She will be seen in the surgical clinic in about 10 days for removal of the lia. DICTATING PHYSICIAN: JACOB RODRIGUEZ M.D. [id number] KATEY#: [id number] ID: [id number] JOB#: [id number] ACCT: [id number] cc:JACOB PADILLA M.D. > [email or web address]
== END 2018-05-24 16:20 | disposition home or self-care (01) | DRG 337 ==
LOC: ER 08:45 → EH 12:27 → 5 15:06
PROVIDERS: ADMIT Surgery; ATTEND Surgery
PROC: 0DN80ZZ Release Small Intestine, Open Approach (ICD-10-PCS; 2018-05-20)
PROC: 0DNC0ZZ Release Ileocecal Valve, Open Approach (ICD-10-PCS; principal; 2018-05-20 13:30)
DX: K56.51 Intestinal adhesions [bands], with partial obstruction (principal); I10 Essential (primary) hypertension; E78.5 Hyperlipidemia, unspecified; E86.0 Dehydration; J45.909 Unspecified asthma, uncomplicated; G47.00 Insomnia, unspecified; F17.210 Nicotine dependence, cigarettes, uncomplicated; Z79.84 Long term (current) use of oral hypoglycemic drugs; Z79.899 Other long term (current) drug therapy; E87.6 Hypokalemia
CPT/HCPCS: 36415; 74018; 74019; 74177; 74250; 790; 80048; 80053; 81001; 82962; 83690; 83735; 85025; 93005; 93010; 94799; 96361; 96374; 99285; C1765; J0330; J0690; J1100; J1170; J1650; J2250; J2270; J2405; J2550; J2704; J3010; J3475; J3480; J3490; J7030; S0164

== ENCOUNTER → 2018-06-20 | Outpatient (CLI) | payer OTHER ==
--- NOTE | 2018-06-20 16:20 | WOMENS IMAGING REPORT ---
EXAM DESCRIPTION: 3D SCREENING MAMMO BILAT COMPLETED DATE/TIME: 06/20/2018 11:39 am REASON FOR STUDY: BILATERAL SCREENING MAMMO 3D/Z12.31 Z12.31 ENCNTR SCREEN MAMMOGRAM FOR MALIGNANT NEOPLASM OF ДМИТРИЙ COMPARISON: Multiple since 2011 TECHNIQUE: Standard craniocaudal and mediolateral oblique views of each breast recorded using digita l acquisition and breast tomosynthesis. LIMITATIONS: None. FINDINGS: Findings present which are benign by mammographic criteria. No suspicious masses, calcifi cations or architectural distortion. Pertinent benign findings: Stable benign bilateral breast parenchymal calcifications Read with the assistance of CAD. .[facility] - R2 Cenova Version 1.3 .[facility] - R2 Cenova Version 1.3 .[facility] - R2 Cenova Version 2.4 .[facility] [place] Cenova Version 2.4 .[facility] - R2 Clinical Laboratory Medical Director Version 9.2 Benign mammographic findings may include one or more of the following: Smooth masses, popcorn/rim/co arse calcifications, asymmetries, post-procedure changes, and lesions with long-standing stability. IMPRESSION: BENIGN MAMMOGRAPHIC FINDINGS. BIRADS 2 BREAST DENSITY: c. The breasts are heterogeneously dense, which may obscure small masses. BIRAD: 2 BENIGN FINDING(S) RECOMMENDATION: RECOMMENDATION: ROUTINE SCREENING Please continue yearly bilateral screening mammography/tomosynthesis in May 2019 COMMENT: The patient has been notified of the results by letter per [place] requirements. Additional no tification policies are in place for contacting patient with suspicious or incomplete findings. Quality ID #[id number]: The [employer] recommends an annual screening mammogram for women aged 40 years or over. This facility utilizes a reminder system to ensure that all patients receive reminder letters, and/or direct phone calls for appointments. This includes reminders for routine scr eening mammograms, diagnostic mammograms, or other Breast Imaging Interventions when appropriate. Th is patient will be placed in the appropriate reminder system. The [employer] (A[employer]) has developed recommendations for screening MRI of the breast s in certain patient populations, to be used in conjunction with mammography. Breast MRI surveillanc e may be appropriate for women with more than 20% lifetime risk of developing breast cancer as deter mined by genetic testing, significant family history of the disease, or history of mantle radiation f or Hodgkins Disease. ACR Practice Guidelines 2008. DBT Technology DBT is a type of tomographic mammography. With conventional mammography, overlapping breast tissue ma y make lesions difficult to detect, even with good compression. DBT uses an x-ray tube that rotates a round the breast, taking images at different angles. These images are then combined to create thin sl ices of the breast that the radiologist can view as a 3D reconstruction. The Hologic unit can perform full-field digital mammograms (2D imaging); or DBT (3D imaging); or both, in a combination mode that quickly performs both the mammogram and the tomosynthesis scan while the breast is still compressed. PQRS 6045F: Fluoroscopic imaging is not utilized for breast tomosynthesis. TECHNICAL DOCUMENTATION: FINDING NUMBER: (1) ASSESSMENT: (1) JOB ID: [id number] [employer]- All Rights Reserved Reading location - IP/workstation name: [email or web address]
== END ==
LOC: WI 11:07
PROVIDERS: ATTEND Nurse Practitioner
DX: Z12.31 Encounter for screening mammogram for malignant neoplasm of breast (principal)
CPT/HCPCS: 77063; 77067